=== PATIENT | male | born 1960 | race Caucasian/White ===

== ENCOUNTER 2021-07-14 20:20 | Emergency (ER) | payer BC ==
[~2021-07-14] VITALS: Ht 175.3 cm; Wt 74.8 kg
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
[2021-07-14 20:34] VITALS: BP 153/94
--- NOTE | 2021-07-14 21:11 | PCM.EKG ---
[facility] Test Date: 2021-07-14 Test Time: 21:05:58 Pat Name: ADDIE COLE Department: Room: Gender: M Resort Manager: EC : [id number] Requested By: HUDSON DUNN Order Number: [id number] Reading MD: Hudson DUNN Measurements Intervals [place] Rate: 89 P: 81 AR: 148 QRS: 92 QRSD: 106 T: 67 QT: 357 QTc: 435 Interpretive Statements Sinus rhythm Ventricular premature complex Probable left atrial enlargement Consider right ventricular hypertrophy No previous ECG available for comparison Electronically Signed On 07-15-2021 6:34:21 CDT by Hudson DUNN Please click the below link to view image of tracing.
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
[2021-07-14 21:16] LABS: BASOPHIL % 0.5 % (0.0-0.2); EOSINOPHIL # 0.1 10^3/uL (0.0-0.2); EOSINOPHIL % 1.4 % (0.0-5.0); LYMPHOCYTES # 2.15 10^3/uL1 (1.0-4.8); LYMPHOCYTES % 26.9 % (24.0-44.0); MEAN CORP HGB 30.6 pg (26-34); MONOCYTES # 0.5 10^3/uL (0.3-0.8); MONOCYTES % 6.6 % (5.0-12.0); NEUTROPHIL # 5.2 10^3/uL (1.8-7.7); NEUTROPHILS % 64.3 % (41.0-85.0); PLATELET COUNT 244 10^3/uL (150-400)
[2021-07-14 21:32] LABS: CARBON DIOXIDE 30.3 mmol/L (20.0-32)
== END 2021-07-14 23:15 | disposition home or self-care (01) ==
LOC: ER 20:20 → EDBD 20:20 → ER 23:15
DX: S20.212A Contusion of left front wall of thorax, initial encounter (principal); S30.1XXA Contusion of abdominal wall, initial encounter; F17.210 Nicotine dependence, cigarettes, uncomplicated; V89.2XXA Person injured in unspecified motor-vehicle accident, traffic, initial encounter; Y93.89 Activity, other specified; Y92.89 Other specified places as the place of occurrence of the external cause; Y99.8 Other external cause status
CPT/HCPCS: 36415; 71260; 74177; 80053; 84484; 85025; 93005; 99284; Q9965